=== PATIENT | female | born 1985 | race Caucasian/White ===

== ENCOUNTER → 2016-05-13 | Outpatient (CLI) | payer OTHER ==
[2016-04-08 17:00] VITALS: BP 136/80
[~2016-05-13] MED LIST: BUPR150T8 PO; CIPR500T94 PO; DEXT15TA PO; HYDR-2666 PO; ONDA4TAB10 SL; PANT40TA5 PO; PROC5TAB14 PO; PROM25SU32 RC; PROM25TA10 PO
--- NOTE | 2016-05-13 14:56 | KCIC ---
PROCEDURE Left finger, three views. HISTORY Slammed thumb in car door yesterday morning. TECHNIQUE Collimated PA, lateral, and oblique views of the thumb. COMPARISON None. FINDINGS The mineralization is normal. No radiopaque foreign body. No soft tissue swelling is seen radiographically. No acute fracture or dislocation. Joint spaces maintained. IMPRESSION No acute fracture. Electronically signed by: Jeff Alejandro MD (May 13, 2016 14:54:59)
== END | disposition home or self-care (01) ==
LOC: KCIC 13:34
PROVIDERS: ATTEND Physician Assistant Medical
DX: M79.645 Pain in left finger(s) (principal)
CPT/HCPCS: 73140

== ENCOUNTER 2016-08-11 15:28 | Emergency (ER) | payer OTHER ==
[~2016-08-11] VITALS: Ht 170.2 cm; Wt 64.4 kg
[2016-08-11] MEDS ORDERED: METOCLOPRAMIDE HCL 10 MG/2 ML VIAL. IV ONE (16:45)
[2016-08-11] MEDS ORDERED: diphenhydrAMINE 50 MG/ML VIAL IVP ONE (16:45)
[2016-08-11] MEDS ORDERED: PROCHLORPERAZINE 10 MG/2 ML VIAL. IV ONE (16:45)
[2016-08-11] MEDS ORDERED: CLONIDINE HCL 0.1 MG TABLET PO ONE (16:45)
[2016-08-11 17:30] VITALS: BP 95/56
--- NOTE | 2016-08-11 17:34 | ED.ADGEN ---
Past Medical History Past Medical History: Kidney Stone, Migraines Past Surgical History: Lumbar Laminectomy Additional Past Surgical Histo: LEFT ACL, LEFT LABRAL HIP SURGERY, back Alcohol Use: Occasionally Drug Use: None Adult General Chief Complaint Chief Complaint: headache, back pain HPI HPI Patient is a 31 female with history of chronic back pain secondary hypertension who presents with poorly controlled back pain, and migraine headache after fasting for several hours in preparation for epidural steroid injection of her lumbar spine earlier this afternoon. Unfortunately, the patient was unable to tap procedure performed due to an elevated blood pressure. Patient's systolic blood pressures reported to be 170. Patient states her blood pressure frequently has hypertension when pain is pearly controlled. The patient last ate drank or had pain medication greater than 12 hours prior to her procedure. Patient did take 2 Fioricet prior to ED arrival. She reports dull throbbing holocephalic headache with nausea and photophobia consistent with previous migraines. She denies vomiting, extremity weakness or loss of sensation. She denies change in back pain pattern or severity. No other acute symptoms or complaints. Patient's accompanied at bedside by family members. Review of Systems Review of Systems ROS as per HPI. Current Medications Current Medications Current Medications Medications (Trade) Dose Ordered Sig/Kimmy Start Time Stop Time Status Last Admin Dose Admin Clonidine HCl (Catapres) 0.2 mg 1X ONCE 08/11/16 16:45 08/11/16 16:46 DC 08/11/16 16:56 0.2 MG Diphenhydramine HCl (Benadryl) 25 mg 1X ONCE 08/11/16 16:45 08/11/16 16:46 DC 08/11/16 16:55 25 MG Metoclopramide HCl (Reglan) 10 mg 1X ONCE 08/11/16 16:45 08/11/16 16:46 DC 08/11/16 16:56 10 MG Prochlorperazine Edisylate (Compazine) 10 mg 1X ONCE 08/11/16 16:45 08/11/16 16:46 DC 08/11/16 16:55 10 MG Allergies Allergies Allergies Coded Allergies Type Severity Reaction Last Updated Verified Latex, Natural Rubber Allergy Intermediate sensitive to gloves; okay for fentanyl 04/29/15 Yes Physical Exam Physical Exam Constitutional: Well developed, moderate discomfort secondary to pain. HENT: Normocephalic, atraumatic, bilateral external ears normal, oropharynx moist, no oral exudates, nose normal. Eyes: PERRLA, light sensitivity. Neck: Normal range of motion. Cardiovascular:Heart rate regular rhythm, no murmur. Lungs & Thorax: Bilateral breath sounds clear to auscultation. Abdomen: Bowel sounds normal, soft, no tenderness. Skin: Warm, dry, no erythema. Back: No tenderness, no CVA tenderness. Extremities: No tenderness. Neurologic: Alert and oriented X 3, normal motor function. Psychologic: Affect normal, judgement normal, mood normal. Current Patient Data Vital Signs Vital Signs Date Time Temp Pulse Resp B/P Pulse Ox O2 Delivery O2 Flow Rate FiO2 08/11/16 16:56 102 160/95 08/11/16 16:18 20 100 Room Air 08/11/16 15:54 97.9 97.9 EKG EKG [] Radiology/Procedures Radiology/Procedures [] Impressions: Migraine headache, elevated blood pressure secondary to missed medications Course & Med Decision Making Course & Med Decision Making Pertinent Labs and Imaging studies reviewed. (See chart for details) [Typical migraine headache without focal neurologic symptoms. IV fluids, or drink cocktail given in ED with complete resolution of symptoms. Patient sleeping prior to departure, blood pressure improved. Will defer further management to PCP.] Dragon Disclaimer Dragon Disclaimer This electronic medical record was generated, in whole or in part, using a voice recognition dictation system. PRAFUL HICKMAN DO Aug 11, 2016 17:34
== END 2016-08-11 18:05 | disposition home or self-care (01) ==
LOC: ER 15:28
DX: G43.909 Migraine, unspecified, not intractable, without status migrainosus (principal); I15.8 Other secondary hypertension; G89.29 Other chronic pain; Z91.040 Latex allergy status; Z98.890 Other specified postprocedural states
CPT/HCPCS: 96374; 96375; 99284; J0780; J1200; J2765

== ENCOUNTER 2017-01-30 11:32 | Emergency (ER) | payer OTHER ==
[~2017-01-30] VITALS: Ht 170.2 cm; Wt 67.1 kg
[~2017-01-30 11:32] MED LIST changes: -HYDR-2666 PO; +HYDR-2758 PO; +TRAZ50TA15 PO; +VENL37.5 PO
--- NOTE | 2017-01-30 12:50 | PHYS DOC ---
Past Medical History Past Medical History: Kidney Stone, Migraines, Other Additional Past Medical Histor: HYPERMOBILITY JOINT DISORDER, EhlersDanlos syndrome Past Surgical History: Lumbar Laminectomy Additional Past Surgical Histo: LEFT ACL, LEFT LABRAL HIP SURGERY, back Alcohol Use: Occasionally Drug Use: None Adult General Chief Complaint Chief Complaint: ABNORMAL LABS HPI HPI Patient is a 31 year old F who presents with increased weakness and fatigue. Patient has Ehler Danlos syndrome and malabsorption in which she gets infusions of iron and nutrients weekly. Patient states her PCP sent her into the emergency room because she came in for her weekly infusion was complaining of increased weakness headaches and tingling all over. PCP was concerned of abnormal labs and was unable to draw them in the office today. Patient denies any chest pain or shortness of breath. Patient denies any nausea/vomiting/ diarrhea. Patient has no other complaints. Review of Systems Review of Systems GEN: Denies fevers, chills, sweats HEENT: Denies blurred vision, sore throat CV: Denies chest pain RESP: Denies shortness of air, cough GI: Denies n/v/d NEURO: Denies confusion, dizziness MSK: Weakness Allergies Allergies Allergies Coded Allergies Type Severity Reaction Last Updated Verified Latex, Natural Rubber Allergy Intermediate sensitive to gloves; okay for fentanyl 04/29/15 Yes Physical Exam Physical Exam GEN.: No apparent distress. Alert and oriented. HEENT: Head is normocephalic, atraumatic NECK: Supple. LUNGS: CTAB. HEART: RRR, S1, S2 present. Peripheral pulses intact ABDOMEN: Soft, nontender. Positive bowel sounds. EXTREMITIES: Without any cyanosis. NEUROLOGIC: Normal speech, normal tone PSYCHIATRIC: Normal affect, normal mood. SKIN: No ulcerations Current Patient Data Vital Signs Vital Signs Date Time Temp Pulse Resp B/P (MAP) Pulse Ox O2 Delivery O2 Flow Rate FiO2 01/30/17 13:39 92 123/80 (94) 95 Room Air 01/30/17 12:05 97.9 16 97.9 Lab Values Laboratory Tests Test 01/30/17 12:10 01/30/17 12:25 Urine Collection Type Void Urine Color [place] Urine Clarity Clear Urine pH 7.0 Urine Specific [place] 1.020 Urine Protein Negative mg/dL (NEG-TRACE) Urine Glucose (UA) Negative mg/dL (NEG) Urine Ketones (Stick) Negative mg/dL (NEG) Urine Blood Negative (NEG) Urine Nitrite Negative (NEG) Urine Bilirubin Negative (NEG) Urine Urobilinogen Dipstick 0.2 mg/dL (0.2 mg/dL) Urine Leukocyte Esterase Trace (NEG) Urine RBC Occ /HPF (0-2) Urine WBC 1-4 /HPF (0-4) Urine Squamous Epithelial Cells Mod /LPF Urine Bacteria Moderate /HPF (0-FEW) Urine Mucus Slight /LPF Urine Test Negative (NEG) White Blood Count 7.3 x10^3/uL (4.0-11.0) Red Blood Count 4.36 x10^6/uL (3.50-5.40) Hemoglobin 13.1 g/dL (12.0-15.5) Hematocrit 39.7 % (36.0-47.0) Mean Corpuscular Volume 91 fL (79-100) Mean Corpuscular Hemoglobin 30 pg (25-35) Mean Corpuscular Hemoglobin Concent 33 g/dL (31-37) Red Cell Distribution Width 15.0 % (11.5-14.5) H Platelet Count 254 x10^3/uL (140-400) Neutrophils (%) (Auto) 68 % (31-73) Lymphocytes (%) (Auto) 23 % (24-48) L Monocytes (%) (Auto) 5 % (0-9) Eosinophils (%) (Auto) 3 % (0-3) Basophils (%) (Auto) 1 % (0-3) Neutrophils # (Auto) 5.0 x10^3uL (1.8-7.7) Lymphocytes # (Auto) 1.7 x10^3/uL (1.0-4.8) Monocytes # (Auto) 0.4 x10^3/uL (0.0-1.1) Eosinophils # (Auto) 0.2 x10^3/uL (0.0-0.7) Basophils # (Auto) 0.1 x10^3/uL (0.0-0.2) Sodium Level 143 mmol/L (136-145) Potassium Level 3.8 mmol/L (3.5-5.1) Chloride Level 107 mmol/L (98-107) Carbon Dioxide Level 30 mmol/L (21-32) Anion Gap 6 (6-14) Blood Urea Nitrogen 11 mg/dL (7-20) Creatinine 0.8 mg/dL (0.6-1.0) Estimated GFR (Cockcroft-Gault) 82.6 BUN/Creatinine Ratio 14 (6-20) Glucose Level 63 mg/dL (70-99) L Calcium Level 8.6 mg/dL (8.5-10.1) Iron Level 470 ug/dL (50-170) H Total Iron Binding Capacity 453 ug/dL (250-450) H Iron Saturation 104 % (15-34) H Total Bilirubin 0.4 mg/dL (0.2-1.0) Aspartate Amino Transferase (AST) 16 U/L (15-37) Alanine Aminotransferase (ALT) 19 U/L (14-59) Alkaline Phosphatase 71 U/L (46-116) Total Protein 6.6 g/dL (6.4-8.2) Albumin 3.5 g/dL (3.4-5.0) Albumin/Globulin Ratio 1.1 (1.0-1.7) Laboratory Tests 01/30/17 12:25 Laboratory Tests 01/30/17 12:25 EKG EKG 1211: EKG shows normal sinus rhythm rate of 77 no STEMI[] Radiology/Procedures Radiology/Procedures [] Course & Med Decision Making Course & Med Decision Making Pertinent Labs and Imaging studies reviewed. (See chart for details) ED course: Patient is seen and examined emergency room basic blood work was ordered along with a iron panel 1349: Discussed CC/HP/PMH with poison control and will consult toxicology 1438: Poison control touch base with the video conference specialist and the transfusion center in which the patient received an iron transfusion this morning prior to coming to the emergency room in the video conference specialist felt that the elevated iron levels seen today in emergency room related to the recent transfusion. Poison control did not recommend admission or treatment at this time. Was a control recommended discharge and follow-up with PCP. MDM: After reviewing the chart, CC/HPI/PMH, physical exam, [lab results], I do not believe the patient has emergent medical condition warranting further workup and /or admission at this time. Patient has elevated iron levels secondary to her recent transfusion and after having a long discussion with poison control the patient does not need any emergent treatment for the elevated iron levels at this time. Patient stable for discharge. Additional verbal discharge instructions were provided to the patient and that if symptoms get worse or any new symptoms arise that are worrisome to the patient she is to return to the emergency room immediately ] [] Dragon Disclaimer Dragon Disclaimer This electronic medical record was generated, in whole or in part, using a voice recognition dictation system. Departure Departure Impression: Primary Impression: Weakness Additional Impression: Iron deficiency anemia Disposition: HOME, SELF-CARE Condition: STABLE Referrals: NON,STAFF (PCP) Patient Instructions: Iron Deficiency Anemia Additional Instructions: Please follow-up with your family doctor in the next one to 2 days and return if symptoms increase Problem Qualifiers SOLO POTTER DO Jan 30, 2017 12:50
[2017-01-30 12:55] LABS: BILIRUBIN,URINE NEGATIVE (NEG); GLUCOSE,URINE NEGATIVE (NEG); NITRITE,URINE NEGATIVE (NEG); PROTEIN,URINE NEGATIVE (NEG-TRACE); UROBILINOGEN,URINE 0.2 mg/dL (0.2 mg/dL)
[2017-01-30 12:59] LABS: NEG OBC UR NEG; POS OBC UR POS
[2017-01-30 13:03] LABS: BASO # 0.1 x10^3/uL (0.0-0.2); BASO % 1 % (0-3); EOS % 3 % (0-3); HEMATOCRIT 39.7 % (36.0-47.0); HEMOGLOBIN 13.1 g/dL (12.0-15.5); LYMPH # 1.7 x10^3/uL (1.0-4.8); LYMPH % 23 % (24-48); MEAN CORPUSCULAR HEMOGLOBIN 30 pg (25-35); MEAN CORPUSCULAR HGB CONC 33 g/dL (31-37); MEAN CORPUSCULAR VOLUME 91 fL (79-100); MONO % 5 % (0-9); NEUT % 68 % (31-73); PLATELET COUNT 254 x10^3/uL (140-400); RED BLOOD COUNT 4.36 x10^6/uL (3.50-5.40); WHITE BLOOD COUNT 7.3 x10^3/uL (4.0-11.0)
[2017-01-30 13:10] LABS: BACTERIA,URINE MODERATE /HPF (0-FEW); RBC,URINE OCC /HPF (0-2); SQUAMOUS EPITHELIAL CELL,UR MOD /LPF
[2017-01-30 13:11] LABS: CALCIUM 8.6 mg/dL (8.5-10.1); CREATININE 0.8 mg/dL (0.6-1.0); GFR 82.6; POTASSIUM 3.8 mmol/L (3.5-5.1)
[2017-01-30 13:15] LABS: ALBUMIN 3.5 g/dL (3.4-5.0); ALBUMIN/GLOBULIN RATIO 1.1 (1.0-1.7); IRON,SERUM 470 ug/dL (50-170); TOTAL BILIRUBIN 0.4 mg/dL (0.2-1.0); TOTAL PROTEIN 6.6 g/dL (6.4-8.2)
[2017-01-30 13:19] LABS: % SAT IRON 104 % (15-34)
--- NOTE | 2017-01-30 13:43 | EKG ---
[facility] [address] [place] [address] Test Date: 2017-01-30 Test Time: 12:21:55 Pat Name: ROYCE SALGADO Department: Room: Gender: F [employer]: : 1985 Requested By: SOLO POTTER Order Number: [id number] Reading MD: Measurements Intervals [place] Rate: 79 P: 51 ND: 140 QRS: 3 QRSD: 92 T: 9 QT: 426 QTc: 495 Interpretive Statements SINUS RHYTHM PROLONGED QT NO SPECIFIC ECG ABNORMALITIES RI6.01 No previous ECG available for comparison
[2017-01-30 14:39] VITALS: BP 117/78
== END 2017-01-30 15:00 | disposition home or self-care (01) ==
LOC: ER 11:32
DX: R53.1 Weakness (principal); D50.9 Iron deficiency anemia, unspecified; R51 Headache; G43.909 Migraine, unspecified, not intractable, without status migrainosus; Z87.442 Personal history of urinary calculi; Z88.8 Allergy status to other drugs, medicaments and biological substances; Z91.040 Latex allergy status
CPT/HCPCS: 36415; 80053; 81001; 81025; 83540; 83550; 85025; 87086; 93005; 99285-25

== ENCOUNTER 2017-04-27 16:48 | Emergency (ER) | payer OTHER ==
[2017-04-27 17:33] LABS: ADD MAN DIFF? NO
[2017-04-27 17:36] LABS: BASO # 0.1 x10^3/uL (0.0-0.2); BASO % 1 % (0-3); EOS # 0.2 x10^3/uL (0.0-0.7); EOS % 3 % (0-3); HEMATOCRIT 40.8 % (36.0-47.0); HEMOGLOBIN 13.5 g/dL (12.0-15.5); LYMPH # 2.3 x10^3/uL (1.0-4.8); LYMPH % 28 % (24-48); MEAN CORPUSCULAR HEMOGLOBIN 31 pg (25-35); MEAN CORPUSCULAR HGB CONC 33 g/dL (31-37); MEAN CORPUSCULAR VOLUME 93 fL (79-100); MONO # 0.4 x10^3/uL (0.0-1.1); MONO % 5 % (0-9); NEUT # 5.2 x10^3uL (1.8-7.7); NEUT % 64 % (31-73); PLATELET COUNT 242 x10^3/uL (140-400); RED BLOOD COUNT 4.39 x10^6/uL (3.50-5.40); RED CELL DISTRIBUTION WIDTH 11.9 % (11.5-14.5); WHITE BLOOD COUNT 8.2 x10^3/uL (4.0-11.0)
[2017-04-27 17:51] LABS: ANION GAP 8 (6-14); BLOOD UREA NITROGEN 7 mg/dL (7-20); CALCIUM 8.4 mg/dL (8.5-10.1); CARBON DIOXIDE 28 mmol/L (21-32); CHLORIDE 106 mmol/L (98-107); CREATININE 0.9 mg/dL (0.6-1.0); GFR 72.1; GLUCOSE 104 mg/dL (70-99); POTASSIUM 3.8 mmol/L (3.5-5.1); SODIUM 142 mmol/L (136-145)
[2017-04-27] MEDS: IV NORMAL SALINE 1000ML BAG 1,000 ML IV (17:58)
[2017-04-27 18:02] LABS: TROPONINI < 0.017 ng/mL (0.000-0.055)
[2017-04-27 18:38] LABS: URINE HCG POC HCG NEGATIVE (Negative)
[2017-04-27 18:43] LABS: AMPHETAMINE/METHAMPHETAMINE NEG (NEG); BARBITURATES NEG (NEG); BENZODIAZEPINES NEG (NEG); CANNABINOIDS NEG (NEG); COCAINE NEG (NEG); ETHANOL, URINE NEG (NEG); METHADONE NEG (NEG); OPIATES NEG (NEG); PHENCYCLIDINE NEG (NEG)
== END 2017-04-27 20:02 | disposition home or self-care (01) ==
LOC: ER 16:48
DX: R42 Dizziness and giddiness (principal); G43.909 Migraine, unspecified, not intractable, without status migrainosus; Q79.6 Ehlers-Danlos syndromes; Z87.442 Personal history of urinary calculi; Z99.2 Dependence on renal dialysis; Z88.8 Allergy status to other drugs, medicaments and biological substances; Z91.040 Latex allergy status
CPT/HCPCS: 36415; 71045; 80048; 80307; 81025; 84443; 84484; 85025; 93005; 96360; 96361; 99285-25; J7030

== ENCOUNTER 2020-02-18 17:30 | Emergency (ER) | payer OTHER ==
[~2020-02-18] VITALS: Ht 172.7 cm; Wt 75.0 kg
[~2020-02-18 17:30] MED LIST changes: -HYDR-2758 PO; +HYDR-2761 PO; -PANT40TA5 PO; +PANT40TA77 PO; +TRAZ-118 PO; -TRAZ50TA15 PO
--- NOTE | 2020-02-18 17:52 | PHYS DOC ---
Past Medical History Past Medical History: Kidney Stone, Migraines, Other Additional Past Medical Histor: HYPERMOBILITY JOINT DISORDER, EhlersDanlos syndrome (TUCKER CORONA DO) Past Surgical History: Lumbar Laminectomy Additional Past Surgical Histo: LEFT ACL, LEFT LABRAL HIP SURGERY, back (TUCKER CORONA DO) Smoking Status: Current Every Day Smoker Alcohol Use: None Drug Use: None (TUCKER CORONA DO) General Adult EDM: Chief Complaint: HEADACHE HPI: HPI: History obtained from patient. Patient is a 34-year-old female with recently diagnosed left vertebral artery collapse who presents with chief complaint of migraine headache. Patient states 5 weeks ago she was diagnosed with [facility] with left vertebral artery collapse causing severe headaches. She states that she was subsequently discharged home. States she developed a headache gr adually 3 days ago. States the headaches seem to worsen acutely 2 hours ago. She states she has never had a headache like this before. Notes it is at the back of her head and radiates down her cervical spine. Also notes when she bends forward that involves the top of her head. Notes nausea without vomiting. Endorses photophobia and phonophobia. Notes that she has tried multiple medications at home including magnesium, Compazine, verapamil as prescribed by her physicians. Note she is supposed to receive a 6-hour IV migraine infusion tomorrow. Denies falls or injury. Denies trauma. Her friend at bedside states that when she spoke with the patient 2 hours ago that she had slurred speech and confusion. Friend at bedside states this has markedly im proved. Patient denies chest pain or shortness of breath. States that she has no weakness in the extremities. No other complaints. (TUCKER CORONA DO) Review of Systems: Review of Systems: Constitutional: Denies fever or chills. [] Eyes: Denies change in visual acuity. [] HENT: Denies nasal congestion or sore throat. [] Respiratory: Denies cough or shortness of breath. [] Cardiovascular: Denies chest pain or edema. [] GI: Denies abdominal pain, nausea, vomiting, bloody stools or diarrhea. [] : Denies dysuria. [] Musculoskeletal: Denies back pain or joint pain. [] Integument: Denies rash. [] Neurologic: Positive for headache Endocrine: Denies polyuria or polydipsia. [] Lymphatic: Denies swollen glands. [] Psychiatric: Denies depression or anxiety. [] (TUCKER CORONA DO) Heart Score: Risk Factors: Risk Factors: DM, Current or recent (<one month) smoker, HTN, HLP, family history of CAD, obesity. Risk Scores: Score 0 - 3: 2.5% MACE over next 6 weeks - Discharge Home Score 4 - 6: 20.3% MACE over next 6 weeks - Admit for Clinical Observation Score 7 - 10: 72.7% MACE over next 6 weeks - Early Invasive Strategies (TUCKER CORONA DO) Current Medications: Current Medications Medications (Trade) Dose Ordered Sig/Kimmy Start Time Stop Time Status Last Admin Dose Admin Diphenhydramine HCl (Benadryl) 50 mg 1X ONCE 02/18/20 18:00 02/18/20 18:01 UNV Metoclopramide HCl (Reglan Vial) 10 mg 1X ONCE 02/18/20 18:00 02/18/20 18:01 UNV Sodium Chloride 1,000 ml @ 1,000 mls/hr 1X ONCE 02/18/20 18:00 02/18/20 18:59 UNV (SEBASTIAN CORONAORY Michelle HOLCOMB) Allergies: Allergies: Allergies Coded Allergies Type Severity Reaction Last Updated Verified Latex, Natural Rubber Allergy Intermediate sensitive to gloves; okay for fentanyl 04/29/15 Yes (TUCKER CORONA DO) Physical Exam: PE: Constitutional: Well developed, well nourished, no acute distress, non-toxic appearance. [] HENT: Normocephalic, atraumatic, bilateral external ears normal, oropharynx moist, no oral exudates, nose normal. [] Eyes: PERRLA, EOMI, conjunctiva normal, no discharge. [] Neck: Normal range of motion, no tenderness, supple, no stridor. [] Cardiovascular:Heart rate regular rhythm, no murmur [] Lungs & Thorax: Bilateral breath sounds clear to auscultation [] Abdomen: soft, no tenderness, no masses, no pulsatile masses. [] Skin: Warm, dry, no erythema, no rash. [] Back: No tenderness, no CVA tenderness. [] Extremities: No tenderness, no cyanosis, no clubbing, ROM intact, no edema. [] Neurologic: Alert with intact cognitive function. No aphasia, dysarthria, or neglect. GCS 15. Pupils 3 mm briskly reactive b/l. No APD present. Cranial nerves 2-12 grossly intact; no facial asymmetry present, tongue midline, shoulder shrugging strength intact. Strength 5/5 and symmetric throughout. Light touch sensation intact throughout. Cerebellar testing appropriate without evidence of dysdiadochokinesia. DTR's 2+ in all 4 extremities. Negative pronator drift bilaterally. Gait normal Psychologic: Affect normal, judgement normal, mood normal. [] (TUCKER CORONA DO) Current Patient Data: Labs: Laboratory Tests Test 02/18/20 17:47 02/18/20 17:48 02/18/20 18:25 02/18/20 18:40 White Blood Count 7.9 x10^3/uL Red Blood Count 4.64 x10^6/uL Hemoglobin 14.3 g/dL Hematocrit 41.9 % Mean Corpuscular Volume 90 fL Mean Corpuscular Hemoglobin 31 pg Mean Corpuscular Hemoglobin Concent 34 g/dL Red Cell Distribution Width 12.4 % Platelet Count 214 x10^3/uL Neutrophils (%) (Auto) 66 % Lymphocytes (%) (Auto) 24 % Monocytes (%) (Auto) 5 % Eosinophils (%) (Auto) 4 % Basophils (%) (Auto) 1 % Neutrophils # (Auto) 5.2 x10^3/uL Lymphocytes # (Auto) 1.9 x10^3/uL Monocytes # (Auto) 0.4 x10^3/uL Eosinophils # (Auto) 0.3 x10^3/uL Basophils # (Auto) 0.1 x10^3/uL Sodium Level 142 mmol/L Potassium Level 3.7 mmol/L Chloride Level 106 mmol/L Carbon Dioxide Level 28 mmol/L Anion Gap 8 Blood Urea Nitrogen 16 mg/dL Creatinine 1.0 mg/dL Estimated GFR (Cockcroft-Gault) 62.7 Glucose Level 81 mg/dL Calcium Level 8.9 mg/dL Magnesium Level 2.4 mg/dL Glucose (Fingerstick) 86 mg/dL Urine Collection Type Unknown Urine Color Yellow Urine Clarity Clear Urine pH 6.0 Urine Specific [place] >=1.030 Urine Protein Negative mg/dL Urine Glucose (UA) Negative mg/dL Urine Ketones (Stick) Negative mg/dL Urine Blood Trace Urine Nitrite Negative Urine Bilirubin Negative Urine Urobilinogen Dipstick 0.2 mg/dL Urine Leukocyte Esterase Negative Urine RBC Occ /HPF Urine WBC Occ /HPF Urine Squamous Epithelial Cells Few /LPF Urine Bacteria Moderate /HPF Bedside Urine HCG, Qualitative Hcg negative Current Medications Medications (Trade) Dose Ordered Sig/Kimmy Route PRN Reason Start Time Stop Time Status Last Admin Dose Admin Sodium Chloride 1,000 ml @ 1,000 mls/hr 1X ONCE IV 02/18/20 18:00 02/18/20 18:59 DC 02/18/20 18:09 Diphenhydramine HCl (Benadryl) 50 mg 1X ONCE IVP 02/18/20 18:00 02/18/20 18:01 DC Metoclopramide HCl (Reglan Vial) 10 mg 1X ONCE IVP 02/18/20 18:00 02/18/20 18:01 DC 02/18/20 18:12 Iohexol (Omnipaque 350 Mg/ml) 75 ml 1X ONCE IV 02/18/20 18:00 02/18/20 18:07 DC 02/18/20 18:00 Info (CONTRAST GIVEN -- Rx MONITORING) 1 each PRN DAILY PRN MC SEE COMMENTS 02/18/20 18:15 02/20/20 18:14 Sodium Chloride 1,000 ml @ 1,000 mls/hr 1X ONCE IV 02/18/20 18:45 02/18/20 19:44 DC 02/18/20 18:53 Ketorolac Tromethamine (Toradol 30mg Vial) 30 mg 1X ONCE IVP 02/18/20 19:30 02/18/20 19:40 DC 02/18/20 19:38 Magnesium Sulfate/ Dextrose 100 ml @ 100 mls/hr 1X ONCE IV 02/18/20 19:30 02/18/20 20:29 02/18/20 19:38 (CAT OLGUIN DO) EKG: EKG: [] (TUCKER CORONA DO) Radiology/Procedures: Radiology/Procedures: [] (TUCKER CORONA DO) Radiology/Procedures: [facility] [address] [place], [place] [id number] IMAGING REPORT Signed PATIENT: ROYCE SALGADO Latrice ACCOUNT: [id number] : 1985 LOCATION: ER AGE: 34 SEX: F EXAM STATUS: PRE ER ORD. PHYSICIAN: TUCKER CORONA DO REASON: NOONAN, slurred speech. hx L vertebral artery collapse 5 weeks ago PROCEDURE: CT CODE STROKE HEAD WO EXAM: CT Head without IV contrast INDICATION: Reason: NOONAN, slurred speech. hx L vertebral artery collapse 5 weeks ago / Spl. Instructions: / History: TECHNIQUE: Multi-detector row CT images were obtained of the head without the use of IV contrast. All CT scans performed at this facility utilize dose optimization techniques as appropriate to the exam, including the following: Automated exposure control and adjustment of the mA and/or KV according to patient size (this includes techniques or standardized protocols for targeted exams where dose is indication/reason for exam). COMPARISON: None FINDINGS: BRAIN PARENCHYMA: No evidence of acute intraparenchymal hemorrhage or infarct. There is asymmetric hypoattenuation in the right anderson radiata and posterior limb internal capsule, nonspecific but possibly reflecting mild vasogenic edema. VENTRICLES & EXTRA-AXIAL SPACES: Ventricles are within normal limits. Basilar cisterns are patent. No pathologic extra-axial fluid collection or mass. ORBITS: Orbital contents are unremarkable. SINUSES: Scattered mucosal thickening in the bilateral ethmoid air cells and maxillary sinuses and right sphenoid sinuses are present. Bilateral mastoids are well aerated. OSSEOUS & SOFT TISSUES: Calvarium and skull base are intact. IMPRESSION: Nonspecific hypoattenuation in the right posterior limb internal capsule, possibly mild vasogenic edema. Otherwise unremarkable noncontrast head CT. No evidence of acute intracranial hemorrhage or mass effect. EXAM: CT Angiogram of the Head and Neck INDICATION: Reason: NOONAN, slurred speech. hx L vertebral artery collapse 5 weeks ago / Spl. Instructions: / History: TECHNIQUE: CT images were obtained through the head per standard CTA protocol. Multiplanar and 3D reformatted images were generated from the CT dataset on an independent workstation. All CT scans performed at this facility utilize dose optimization techniques as appropriate to the exam, including the following: Automated exposure control and adjustment of the mA and/or KV according to patient size (this includes techniques or standardized protocols for targeted exams where dose is indication/reason for exam). IV CONTRAST: Administered COMPARISON: None FINDINGS: CTA HEAD: No high-grade large vessel stenosis, proximal or branch vessel occlusion, aneurysm, or vascular malformation. ANTERIOR CIRCULATION: Anterior and middle cerebral arteries are widely patent. ANTERIOR COMMUNICATING ARTERY: Patent. POSTERIOR COMMUNICATING ARTERIES: Present bilaterally and patent. POSTERIOR CIRCULATION: Vertebral and basilar arteries are widely patent. Bilateral posterior inferior cerebellar arteries (PICAs), anterior inferior cerebellar arteries (AICAs), and superior cerebellar arteries (SCAs) are visualized and patent. OTHER: No abnormal brain parenchymal enhancement. The paranasal sinuses, mastoid air cells, and tympanic cavities are clear. NECK CTA: AORTA: 3 vessel configuration of arch. No dissection or acute aortic injury. No hemodynamically significant great vessel origin stenosis. RIGHT CAROTID: Common and internal carotid arteries are widely patent, without evidence of flow limiting stenosis or dissection. LEFT CAROTID: Common and internal carotid arteries are widely patent, without evidence of flow limiting stenosis or dissection. VERTEBRAL ARTERIES: Codominant. No evidence of dissection or flow limiting stenosis. SUBCLAVIAN ARTERIES:Subclavian arteries are patent without stenosis. SOFT TISSUES: Soft tissues are unremarkable. Lung apices are clear. Where applicable, evaluation of ICA stenosis was performed using NASCET criteria, where the site of greatest stenosis is compared to the diameter of the ICA distal to the carotid bulb. IMPRESSION: Normal CTA of the head and neck. FOR INTERNAL CODING PURPOSES Critical result: Findings discussed with TUCKER CORONA at 02/18/2020 6:09 PM. RESULT CODE: (C) Electronically signed by: Queta López MD (02/18/2020 6:09 PM) [facility] DICTATED and SIGNED BY: QUETA LÓPEZ MD DATE: 02/18/20 1809 [facility] [address] [place], [place] [id number] IMAGING REPORT Signed PATIENT: ROYCE SALGADO ACCOUNT: [id number] : 1985 LOCATION: ER AGE: 34 SEX: F EXAM STATUS: PRE ER ORD. PHYSICIAN: TUCKER CORONA DO REASON: NOONAN. hx left vertebral arterty collapse 5 weeks ago PROCEDURE: CT ANGIOGRAPHY HEAD AND NECK EXAM: CT Head without IV contrast INDICATION: Reason: NOONAN, slurred speech. hx L vertebral artery collapse 5 weeks ago / Spl. Instructions: / History: TECHNIQUE: Multi-detector row CT images were obtained of the head without the use of IV contrast. All CT scans performed at this facility utilize dose optimization techniques as appropriate to the exam, including the following: Automated exposure control and adjustment of the mA and/or KV according to patient size (this includes techniques or standardized protocols for targeted exams where dose is indication/reason for exam). COMPARISON: None FINDINGS: BRAIN PARENCHYMA: No evidence of acute intraparenchymal hemorrhage or infarct. There is asymmetric hypoattenuation in the right anderson radiata and posterior limb internal capsule, nonspecific but possibly reflecting mild vasogenic edema. VENTRICLES & EXTRA-AXIAL SPACES: Ventricles are within normal limits. Basilar cisterns are patent. No pathologic extra-axial fluid collection or mass. ORBITS: Orbital contents are unremarkable. SINUSES: Scattered mucosal thickening in the bilateral ethmoid air cells and maxillary sinuses and right sphenoid sinuses are present. Bilateral mastoids are well aerated. OSSEOUS & SOFT TISSUES: Calvarium and skull base are intact. IMPRESSION: Nonspecific hypoattenuation in the right posterior limb internal capsule, possibly mild vasogenic edema. Otherwise unremarkable noncontrast head CT. No evidence of acute intracranial hemorrhage or mass effect. EXAM: CT Angiogram of the Head and Neck INDICATION: Reason: NOONAN, slurred speech. hx L vertebral artery collapse 5 weeks ago / Spl. Instructions: / History: TECHNIQUE: CT images were obtained through the head per standard CTA protocol. Multiplanar and 3D reformatted images were generated from the CT dataset on an independent workstation. All CT scans performed at this facility utilize dose optimization techniques as appropriate to the exam, including the following: Automated exposure control and adjustment of the mA and/or KV according to patient size (this includes techniques or standardized protocols for targeted exams where dose is indication/reason for exam). IV CONTRAST: Administered COMPARISON: None FINDINGS: CTA HEAD: No high-grade large vessel stenosis, proximal or branch vessel occlusion, aneurysm, or vascular malformation. ANTERIOR CIRCULATION: Anterior and middle cerebral arteries are widely patent. ANTERIOR COMMUNICATING ARTERY: Patent. POSTERIOR COMMUNICATING ARTERIES: Present bilaterally and patent. POSTERIOR CIRCULATION: Vertebral and basilar arteries are widely patent. Bilateral posterior inferior cerebellar arteries (PICAs), anterior inferior cerebellar arteries (AICAs), and superior cerebellar arteries (SCAs) are visualized and patent. OTHER: No abnormal brain parenchymal enhancement. The paranasal sinuses, mastoid air cells, and tympanic cavities are clear. NECK CTA: AORTA: 3 vessel configuration of arch. No dissection or acute aortic injury. No hemodynamically significant great vessel origin stenosis. RIGHT CAROTID: Common and internal carotid arteries are widely patent, without evidence of flow limiting stenosis or dissection. LEFT CAROTID: Common and internal carotid arteries are widely patent, without evidence of flow limiting stenosis or dissection. VERTEBRAL ARTERIES: Codominant. No evidence of dissection or flow limiting stenosis. SUBCLAVIAN ARTERIES:Subclavian arteries are patent without stenosis. SOFT TISSUES: Soft tissues are unremarkable. Lung apices are clear. Where applicable, evaluation of ICA stenosis was performed using NASCET criteria, where the site of greatest stenosis is compared to the diameter of the ICA distal to the carotid bulb. IMPRESSION: Normal CTA of the head and neck. FOR INTERNAL CODING PURPOSES Critical result: Findings discussed with TUCKER CORONA at 02/18/2020 6:09 PM. RESULT CODE: (C) Electronically signed by: Queta López MD (02/18/2020 6:09 PM) [facility] DICTATED and SIGNED BY: QUETA LÓPEZ MD DATE: 02/18/201808 (CAT OLGUIN DO) Course & Med Decision Making: Course & Med Decision Making Pertinent Labs and Imaging studies reviewed. (See chart for details) [] Patient is a 34-year-old female with a recent past medical history of left vertebral artery collapse that was causing headaches and has been treated at [facility]. She presents today for gradual onset headache that began 3 days ago but worsened 2 hours ago. Friend noted slurred speech and confusion 2 hours ago on the phone. No initial assessment patient is a NIH score of 0. However given her recent strokelike symptoms stroke alert was called. CT head imaging currently pending. Patient's headache will be treated symptomatically. I do anticipate the patient will require transfer to [facility] for further care. I have signed out the patient's emergency department care to Dr. Olguin. We discussed the history, physical exam findings, completed and pending laboratory results and imaging studies. We have also discussed the current treatment plan and expected clinical course. Please refer to chart for the patient's remaining emergency department course, final disposition, and clinical impression(s). (TUCKER CORONA DO) Course & Med Decision Making Discussed with Neurologist at , Dr. NORRIS GIBSON, who recommended to give patient migraine medication cocktail, iv magnesium, iv toradol, po benadryl, iv reglan. Then discharge patient home. Patient already has an appointment in the infusion clinic tomorrow at . DISCUSSED WITH PATIENT ABOUT PLAN OF CARE, SHE WAS AMENABLE TO IT. SHE WOULD LIKE TO HOME AND SLEEP IN HER OWN BED. PATIENT SAID HER HEADACHE IMPROVED SIGNIFICANTLY. HER NIHSS WAS ZERO on exam by this physician . (CAT OLGUIN DO) Dragon Disclaimer: Dragfidel Disclaimer: This electronic medical record was generated, in whole or in part, using a voice recognition dictation system. (TUCKER CORONA DO) Departure Departure Impression: Primary Impression: Headache Qualified Codes: R51.9 - Headache, unspecified Disposition: 01 DC HOME SELF CARE/HOMELESS Condition: IMPROVED Referrals: UNKNOWN PCP NAME (PCP) please follow up with your doctor at tomorrow as scheduled. Patient Instructions: General Headache Without Cause Additional Instructions: Thank you for visiting our Emergency Department. We appreciate you trusting us with your care. If any additional problems come up don't hesitate to return to visit us. Please follow up with your primary care provider so they can plan additional care if needed and know about the problem that you had. If symptoms worsen come back to the Emergency Department. Any concerning symptoms that start such as chest pain, shortness of air, weakness or numbness on one side of the body, running high fevers or any other concerning symptoms return to the ER. NIHSS Stroke Scale NIH Stroke Scale: NIH Stroke Scale Response (Comments) Value Level of Consciousness: 0 Alert/Responsive 0 LOC Questions: 0 Answers both correctly 0 LOC Commands: 0 Performs both tasks 0 Best Gaze: 0 Normal 0 Visual: 0 No visual loss 0 Facial Palsy: 0 Normal, symmetrical 0 Motor - Left Arm 0 No drift 0 Motor - Right Arm 0 No drift 0 Motor - Left Leg 0 No drift 0 Motor: Right Leg 0 No drift 0 Limb Ataxia: 0 Absent 0 Sensory: 0 No loss 0 Best Language: 0 Normal 0 Dysathria: 0 Normal 0 Extinction and Inattention: 0 Normal 0 Total 0 TUCKER CORONA DO Feb 18, 2020 17:52 CAT OLGUIN DO Feb 18, 2020 19:33
[2020-02-18] MEDS ORDERED: METOCLOPRAMIDE HCL 10 MG/2 ML VIAL. IVP ONE (18:00)
[2020-02-18] MEDS ORDERED: IV NORMAL SALINE 1000ML BAG 1,000 ML IV ONE ×2 (18:00→18:45)
[2020-02-18] MEDS ORDERED: diphenhydrAMINE 50 MG/ML VIAL IVP ONE (18:00)
[2020-02-18] MEDS ORDERED: IOHEXOL 350 MG/ML 100 ML VIAL. IV ONE (18:00)
[2020-02-18 18:07] LABS: BASO # 0.1 x10^3/uL (0.0-0.2); BASO % 1 % (0-3); EOS # 0.3 x10^3/uL (0.0-0.7); EOS % 4 % (0-3); HEMATOCRIT 41.9 % (36.0-47.0); HEMOGLOBIN 14.3 g/dL (12.0-15.5); LYMPH # 1.9 x10^3/uL (1.0-4.8); LYMPH % 24 % (24-48); MEAN CORPUSCULAR HEMOGLOBIN 31 pg (25-35); MEAN CORPUSCULAR HGB CONC 34 g/dL (31-37); MEAN CORPUSCULAR VOLUME 90 fL (79-100); MONO # 0.4 x10^3/uL (0.0-1.1); MONO % 5 % (0-9); NEUT # 5.2 x10^3/uL (1.8-7.7); NEUT % 66 % (31-73); PLATELET COUNT 214 x10^3/uL (140-400); RED BLOOD COUNT 4.64 x10^6/uL (3.50-5.40); RED CELL DISTRIBUTION WIDTH 12.4 % (11.5-14.5); WHITE BLOOD COUNT 7.9 x10^3/uL (4.0-11.0)
--- NOTE | 2020-02-18 18:12 | RAD ---
EXAM: CT Head without IV contrast INDICATION: Reason: NOONAN, slurred speech. hx L vertebral artery collapse 5 weeks ago / Spl. Instructions: / History: TECHNIQUE: Multi-detector row CT images were obtained of the head without the use of IV contrast. All CT scans performed at this facility utilize dose optimization techniques as appropriate to the exam, including the following: Automated exposure control and adjustment of the mA and/or KV according to patient size (this includes techniques or standardized protocols for targeted exams where dose is indication/reason for exam). COMPARISON: None FINDINGS: BRAIN PARENCHYMA: No evidence of acute intraparenchymal hemorrhage or infarct. There is asymmetric hypoattenuation in the right anderson radiata and posterior limb internal capsule, nonspecific but possibly reflecting mild vasogenic edema. VENTRICLES & EXTRA-AXIAL SPACES: Ventricles are within normal limits. Basilar cisterns are patent. No pathologic extra-axial fluid collection or mass. ORBITS: Orbital contents are unremarkable. SINUSES: Scattered mucosal thickening in the bilateral ethmoid air cells and maxillary sinuses and right sphenoid sinuses are present. Bilateral mastoids are well aerated. OSSEOUS & SOFT TISSUES: Calvarium and skull base are intact. IMPRESSION: Nonspecific hypoattenuation in the right posterior limb internal capsule, possibly mild vasogenic edema. Otherwise unremarkable noncontrast head CT. No evidence of acute intracranial hemorrhage or mass effect. EXAM: CT Angiogram of the Head and Neck INDICATION: Reason: NOONAN, slurred speech. hx L vertebral artery collapse 5 weeks ago / Spl. Instructions: / History: TECHNIQUE: CT images were obtained through the head per standard CTA protocol. Multiplanar and 3D reformatted images were generated from the CT dataset on an independent workstation. All CT scans performed at this facility utilize dose optimization techniques as appropriate to the exam, including the following: Automated exposure control and adjustment of the mA and/or KV according to patient size (this includes techniques or standardized protocols for targeted exams where dose is indication/reason for exam). IV CONTRAST: Administered COMPARISON: None FINDINGS: CTA HEAD: No high-grade large vessel stenosis, proximal or branch vessel occlusion, aneurysm, or vascular malformation. ANTERIOR CIRCULATION: Anterior and middle cerebral arteries are widely patent. ANTERIOR COMMUNICATING ARTERY: Patent. POSTERIOR COMMUNICATING ARTERIES: Present bilaterally and patent. POSTERIOR CIRCULATION: Vertebral and basilar arteries are widely patent. Bilateral posterior inferior cerebellar arteries (PICAs), anterior inferior cerebellar arteries (AICAs), and superior cerebellar arteries (SCAs) are visualized and patent. OTHER: No abnormal brain parenchymal enhancement. The paranasal sinuses, mastoid air cells, and tympanic cavities are clear. NECK CTA: AORTA: 3 vessel configuration of arch. No dissection or acute aortic injury. No hemodynamically significant great vessel origin stenosis. RIGHT CAROTID: Common and internal carotid arteries are widely patent, without evidence of flow limiting stenosis or dissection. LEFT CAROTID: Common and internal carotid arteries are widely patent, without evidence of flow limiting stenosis or dissection. VERTEBRAL ARTERIES: Codominant. No evidence of dissection or flow limiting stenosis. SUBCLAVIAN ARTERIES:Subclavian arteries are patent without stenosis. SOFT TISSUES: Soft tissues are unremarkable. Lung apices are clear. Where applicable, evaluation of ICA stenosis was performed using NASCET criteria, where the site of greatest stenosis is compared to the diameter of the ICA distal to the carotid bulb. IMPRESSION: Normal CTA of the head and neck. FOR INTERNAL CODING PURPOSES Critical result: Findings discussed with TUCKER CORONA at 02/18/2020 6:09 PM. RESULT CODE: (C) Electronically signed by: Sue López MD (02/18/2020 6:09 PM) [facility]
[2020-02-18] MEDS ORDERED: CONTRAST GIVEN. MC PRN (18:15)
[2020-02-18 18:28] LABS: CALCIUM 8.9 mg/dL (8.5-10.1); GFR 62.7; POTASSIUM 3.7 mmol/L (3.5-5.1)
[2020-02-18 18:56] LABS: BILIRUBIN,URINE NEGATIVE (NEG); CLARITY,URINE CLEAR; COLOR,URINE YELLOW; NITRITE,URINE NEGATIVE (NEG); PROTEIN,URINE NEGATIVE (NEG-TRACE); UROBILINOGEN,URINE 0.2 mg/dL (0.2 mg/dL)
[2020-02-18 19:17] LABS: BACTERIA,URINE MODERATE /HPF (0-FEW); RBC,URINE OCC /HPF (0-2); WBC,URINE OCC /HPF (0-4)
[2020-02-18] MEDS ORDERED: MAGNESIUM SULFATE 1GM 100 ML IV ONE (19:30)
[2020-02-18] MEDS ORDERED: KETOROLAC 30 MG/ML VIAL. IVP ONE (19:30)
[2020-02-18 20:16] VITALS: BP 128/85
== END 2020-02-18 20:17 | disposition home or self-care (01) ==
LOC: ER 17:30
DX: G43.909 Migraine, unspecified, not intractable, without status migrainosus (principal); R41.0 Disorientation, unspecified; R47.81 Slurred speech; F17.200 Nicotine dependence, unspecified, uncomplicated; Z87.442 Personal history of urinary calculi; Z90.89 Acquired absence of other organs; Z98.890 Other specified postprocedural states; Z91.040 Latex allergy status
CPT/HCPCS: 36415; 70450; 70496; 70498; 80048; 81001; 81025; 82962; 83735; 85025; 87086; 96361; 96365; 96375; 99285; J1885; J2765; J3475; J7030; Q9967